=== PATIENT | female | born 1970 ===

== ENCOUNTER 2020-06-08 10:53 | Emergency (ER) | payer BC ==
[~2020-06-08] VITALS: Ht 160 cm; Wt 59.0 kg
[~2020-06-08 10:53] MED LIST: KETO10TA2 PO; ORPH100T PO; PROTONIX40 MG PO
[2020-06-08] MEDS ORDERED: PROZAC40 MG (11:05)
[2020-06-08] MEDS ORDERED: ULTRAM50 MG PO (16:50)
[2020-06-08] MEDS ORDERED: PEPCID AC20 MG PO (16:50)
[2020-06-08] MEDS ORDERED: LEVSIN/SL0.125 MG PO (16:50)
[2020-06-08] MEDS ORDERED: KETO10TA2 PO (16:50)
== END 2020-06-08 17:15 | disposition home or self-care (01) ==
LOC: ER 10:53
DX: K80.50 Calculus of bile duct without cholangitis or cholecystitis without obstruction (principal); R10.11 Right upper quadrant pain; R11.0 Nausea; Z03.818 Encounter for observation for suspected exposure to other biological agents ruled out